=== PATIENT | female | born 1955 | race Caucasian/White ===

== ENCOUNTER → 2016-09-06 07:54 | Outpatient (CLI) | payer MEDICARE ==
[2013-04-08 16:44] VITALS: BMI 33.5
[~2016-09-06 07:54] MED LIST: LISINOPRIL10 MG PO; PERCOCET 5/3251 TA1 PO; PRAVACHOL20 MG PO
== END | disposition home or self-care (01) ==
LOC: D.US 07:54
DX: R10.9 Unspecified abdominal pain (principal)

== ENCOUNTER → 2016-11-23 10:32 | Outpatient (CLI) | payer MEDICARE ==
[2013-04-08 16:44] VITALS: BMI 33.5
== END | disposition home or self-care (01) ==
LOC: D.LAB 10:32
PROVIDERS: Internal Medicine Gastroenterology
DX: R19.7 Diarrhea, unspecified (principal)

== ENCOUNTER → 2016-11-29 13:59 | Outpatient (CLI) | payer MEDICARE ==
[2013-04-08 16:44] VITALS: BMI 33.5
[~2016-11-29 13:59] MED LIST changes: +FOLIC ACID1 MG PO; +GLUCOPHAGE500 MG PO; +KEPPRA1000 MG PO; +LEXAPRO20 MG PO; +NABUMETONE; +NEURONTIN800 MG PO; +ROBAXIN-750750 MG PO; +[UNRECOGNIZED DRUG - OTHER]
[2016-12-03 06:35] VITALS: BMI 39.9
== END | disposition home or self-care (01) ==
LOC: D.LAB 08:00
DX: R19.7 Diarrhea, unspecified (principal)

== ENCOUNTER 2016-12-03 05:33 | Day surgery (SDC) | payer MEDICARE ==
[~2016-12-03] VITALS: Ht 162.6 cm; Wt 105.5 kg
--- NOTE | ~2016-12-03 | OP ---
PATIENT NAME: AARON CARRASQUILLO MEDICAL RECORD: [id number] :55 LOCATION:[facility] ADMISSION DATE: SURGEON: NILDA DUMONT DO DATE OF OPERATION: 12/03/2016 PROCEDURE: EGD with biopsies. INDICATIONS FOR PROCEDURE: Diarrhea and epigastric abdominal pain as well as gastroesophageal reflux disease. SCOPE: Olympus video gastroscope. MEDICATIONS: Propofol 150 mg IV per anesthesia. ESTIMATED BLOOD LOSS: Minimal. COMPLICATIONS: None. FINDINGS: Informed consent was given. The patient was made comfortable with the above medication. After reaching an adequate level of sedation by slow IV push, the patient was placed on her left side. The endoscope was then advanced under direct visualization through the mouth to the second portion of the duodenum. The upper, middle, lower thirds of the esophagus appeared normal. The GE junction had a normal appearing Z line with some possibly inflamed tissue just distal to this. Cold forcep biopsies were taken of this tissue. There were no obvious lesions or positive appearance of Wu's esophagus. The endoscope was advanced beyond the GE junction into the stomach and retroflexed to view the cardia, where a small sliding hiatal hernia was present. The fundus and body of the stomach appeared normal. In the antrum and prepyloric region, there was some very mild erythema and granularity consistent with possible gastritis. Random biopsies were taken with cold forceps to submit for histology and to rule out H. pylori. The endoscope was advanced beyond the pylorus into the duodenum where the bulb and second portion of the duodenum appeared normal. Based on the patient's symptoms, biopsies were taken from both the bulb and second portion of the duodenum to submit for histology. The endoscope is withdrawn from the patient. The patient tolerated the procedure well and there were no complications. IMPRESSION: 1. Small sliding hiatal hernia. 2. Erythema and granularity of the stomach consistent with possible gastritis. Biopsies are pending. PLAN AND RECOMMENDATIONS: 1. Discharge home when recovery parameters are met. 2. Continue current diet. 3. Continue current medications. 4. Okay to use as needed antacids medication for any reflux symptoms. 5. We will provide a script for Viberzi 100 mg twice daily for what appears to be irritable bowel syndrome, which is diarrhea predominant, based on the patient's continued diarrhea in light of normal endoscopies and stool studies. TRANSINT:[id number] Voice Confirmation ID: [id number] DOCUMENT ID: [id number] OPERATIVE REPORT [id number] AARON CARRASQUILLO NATHAN A DO CC: [id number] DICTATION DATE: 12/03/16758 NEGATIVE TURNER: 12/03/16 0838 [facility] [address] [id number]
[~2016-12-03 05:33] MED LIST changes: -FOLIC ACID1 MG PO; -GLUCOPHAGE500 MG PO; -KEPPRA1000 MG PO; -LEXAPRO20 MG PO; -NABUMETONE; -NEURONTIN800 MG PO; -ROBAXIN-750750 MG PO; -[UNRECOGNIZED DRUG - OTHER]
[2016-12-03] MEDS ORDERED: KEPPRA1000 MG PO (06:11)
[2016-12-03] MEDS ORDERED: GLUCOPHAGE500 MG PO (06:14)
[2016-12-03] MEDS ORDERED: NEURONTIN800 MG PO (06:14)
[2016-12-03] MEDS ORDERED: FOLIC ACID1 MG PO (06:15)
[2016-12-03] MEDS ORDERED: LEXAPRO20 MG PO (06:15)
[2016-12-03] MEDS ORDERED: [UNRECOGNIZED DRUG - OTHER] (06:16)
[2016-12-03] MEDS ORDERED: ROBAXIN-750750 MG PO (06:17)
[2016-12-03] MEDS ORDERED: NABUMETONE (06:18)
[2016-12-03 06:35] VITALS: BP 155/76; Ht 162.6 cm; Wt 105.5 kg
[2016-12-03 06:42] LABS: HEMATOCRIT 39.9 % (36.0-48.0); HEMOGLOBIN 13.1 g/dL (12-16); MCH 30.3 pg (26.0-34.0); MCHC 32.8 g/dL (31.0-37.0); MCV 92.4 fL (80.0-100.0); MEAN PLATELET VOLUME 10.7 fL (7.4-10.4); RBC 4.32 10x6/uL (4.00-5.40); RDW 13.9 % (11.5-14.5); WBC 5.8 10x3/uL (4.8-10.8)
[2016-12-03 07:01] LABS: ANION GAP 12.6 mmol/L (8-16); CALCIUM 8.9 mg/dL (8.5-10.1); CARBON DIOXIDE 27.2 mmol/L (21.0-32.0); CREATININE - SERUM 0.9 mg/dL (0.6-1.3); POTASSIUM - SERUM 3.8 mmol/L (3.5-5.1)
--- NOTE | 2016-12-03 08:22 | NUR ---
0800-RECD TO ROOM FROM GI LAB. DROWSY. AROUSES TO NAME CALL. IV PATENT. DENIES PAIN. VOISE IN TO REPORT FINDINGS.
--- NOTE | 2016-12-03 09:12 | NUR ---
0850-NO NAUSEA AFTER FULL LIQUIDS. IV D/C. 0855-D/C INSTRUCTIONS REVIEWED. 899-D/C HOME VIA WHEELCHAIR WITH SISTER.
== END 2016-12-03 09:00 | disposition home or self-care (01) ==
LOC: D.OPS 05:33
PROVIDERS: Anesthesiology
DX: R19.7 Diarrhea, unspecified (principal); R10.13 Epigastric pain; K44.9 Diaphragmatic hernia without obstruction or gangrene; I10 Essential (primary) hypertension; E11.9 Type 2 diabetes mellitus without complications; G47.30 Sleep apnea, unspecified; Z01.812 Encounter for preprocedural laboratory examination

== ENCOUNTER → 2017-01-30 14:35 | Outpatient (CLI) | payer MEDICARE ==
[2016-12-03 06:35] VITALS: BMI 39.9
[~2017-01-30 14:35] MED LIST changes: +FOLIC ACID1 MG PO; +GLUCOPHAGE500 MG PO; +KEPPRA1000 MG PO; +LEXAPRO20 MG PO; +NABUMETONE; +NEURONTIN800 MG PO; +ROBAXIN-750750 MG PO; +[UNRECOGNIZED DRUG - OTHER]
== END | disposition home or self-care (01) ==
LOC: D.MAMMO 14:15
DX: Z12.31 Encounter for screening mammogram for malignant neoplasm of breast (principal)

== ENCOUNTER → 2017-03-08 09:30 | Outpatient (CLI) | payer MEDICARE ==
[2016-12-03 06:35] VITALS: BMI 39.9
[2017-03-08 10:26] LABS: ALBUMIN 3.7 g/dL (3.4-5.0); BILIRUBIN - DIRECT 0.1 mg/dL (0.00-0.30); BILIRUBIN - INDIRECT 0.25 mg/dL (0.00-1.00); BILIRUBIN - TOTAL 0.35 mg/dL (0.2-1.3)
== END | disposition home or self-care (01) ==
LOC: D.US 09:30
PROVIDERS: Internal Medicine Gastroenterology
DX: K76.0 Fatty (change of) liver, not elsewhere classified (principal)

== ENCOUNTER → 2017-03-21 14:53 | Outpatient (CLI) | payer MEDICARE ==
[2016-12-03 06:35] VITALS: BMI 39.9
== END | disposition home or self-care (01) ==
LOC: D.CT 14:53
PROVIDERS: Family Medicine
DX: H53.2 Diplopia (principal)

== ENCOUNTER → 2017-09-06 08:46 | Outpatient (CLI) | payer MEDICARE ==
[2016-12-03 06:35] VITALS: BMI 39.9
[~2017-09-06 08:46] MED LIST changes: +CRESTOR5 MG PO; +GLIMEPIRIDE4 MG PO; +LAMICTAL100 MG PO
[2017-09-06 10:19] LABS: ALBUMIN 3.3 g/dL (3.4-5.0); BILIRUBIN - DIRECT 0.09 mg/dL (0.00-0.30); BILIRUBIN - INDIRECT 0.28 mg/dL (0.00-1.00); BILIRUBIN - TOTAL 0.37 mg/dL (0.2-1.3); PROTEIN - SERUM 6.7 g/dL (6.4-8.2)
== END | disposition home or self-care (01) ==
LOC: D.US 08:46
PROVIDERS: Internal Medicine Gastroenterology
DX: K76.0 Fatty (change of) liver, not elsewhere classified (principal); R19.5 Other fecal abnormalities

== ENCOUNTER 2017-11-26 10:59 | Outpatient (CLI) | payer MEDICARE ==
[~2017-11-26] VITALS: Ht 162.6 cm; Wt 109.1 kg
--- NOTE | ~2017-11-26 | OP ---
PATIENT NAME: AARON CARRASQUILLO MEDICAL RECORD: [id number] :55 LOCATION:D.CAT ADMISSION DATE: SURGEON: SILVANA OWEN MD DATE OF OPERATION: 11/26/2017 PROCEDURE: Left heart catheterization, selective coronary angiography, right radial and right femoral artery approach. CATHETERS: Radial sheath via radial approach, 5-Slovenian sheath in the femoral side. The procedure was well tolerated. The patient was returned to lee. Sheath removed and ExoSeal device was placed. FINDINGS: Left ventriculography in 30-degree GRUBER view shows mild global hypokinesis. Overall, LV function mildly reduced, estimated EF 40% to 45%. CORONARY ANATOMY: LEFT MAIN: Left main is free of disease. LAD: Free of disease in the diagonal system. CIRCUMFLEX: Free of disease in the marginal system. RIGHT CORONARY ARTERY: Dominant artery, gives rise to PDA, free of disease. IMPRESSION: Mildly reduced LV systolic function, normal coronary anatomy. TRANSINT:[id number] Voice Confirmation ID: [id number] DOCUMENT ID: [id number] SILVANA OWEN MD at 1313 CC: [id number] DICTATION DATE: 11/26/17 1345 PUSHER OPERATOR: 11/26/17 1354 DEP CLI 11/26/17 [facility] [address] [place] [address]
--- NOTE | ~2017-11-26 | HEMODYNAMI ---
PATIENT:AARON CARRASQUILLO MEDICAL RECORD: [id number] : 55 LOCATION:[facility] ADMISSION DATE: 11/26/17 Generatedon:11/26/201713:41 Patient name: AARON CARRASQUILLO Patient #: [id number] SSN : : 1955 Date of study: 11/26/2017 Page: Of Hemodynamic Procedure Report Patient Data Patient Demographics Procedure consent was obtained First Name: AARON Gender: Female Last Name: NEIDA : 1955 Middle Initial: MILANA Age: 62 year(s) Patient #: [id number] Race: Unknown Additional ID: [id number] Contact details [address]: [address] [place] [address] State: [place] City: [place] Zip code: [address] Past Medical History Allergies Allergen Reaction Date Comments Reported Other allergy 11/26/2017 BENICAR, DARVOCET,LISINOPRIL, SULFA, METFORMIN Admission Admission Data Admission Date: 11/26/2017 Admission Time: 10:59 Lab Results Lab Result Date: 11/26/2017 Lab Result Time: 0:00 Biochemistry Name Units Result Min Max BUN mg/dl 12 --(-*--)-- 7 18 Creatinine mg/dl 1.2 --(---*)-- 0.6 1.3 CBC Name Units Result Min Max Hemoglobin g/dl 14 --(*---)-- 13.5 17.5 Procedure Procedure Types Cath Procedure Diagnostic Procedure LHC LH w/Coronaries Sedation Charges Moderate Sedation up to 30 minutes Procedure Description Procedure Date Procedure Date: 11/26/2017 Procedure Start Time: 13:11 Procedure End Time: 13:39 Procedure Staff Name Function Rodríguez Tatum MD Performing Physician Joselyn Womack RT Monitor Gabe Merchant RN Nurse Glendy Roberts RT Scrub Procedure Data Cath Procedure Fluoroscopy Diagnostic fluoroscopy Total fluoroscopy Time: 8.4 time: 8.4 min min Diagnostic fluoroscopy Total fluoroscopy dose: 923 dose: 923 mGy mGy Contrast Material Contrast Material Type Amount (ml) Isovue 300 70 Entry Location Entry Primary Successful Side Size Upsize Upsize Entry Closure Phipps ccessful Closure Location (Fr) 1 (Fr) 2 (Fr) Remarks Device Remarks Radial Right 6 Fr Mechanical artery Short Compression Femoral Right 5 Fr Exoseal artery Estimated blood loss: 5 ml Diagnostic catheters Device Type Used For End Catheter Placement DIAGNOSTIC [place] 110cm 5 Procedure Fr catheter ([id number]) DIAGNOSTIC AR MOD 5Fr Procedure Catheter ([id number]) DIAGNOSTIC JL 3.5 5Fr Procedure catheter ([id number]) DIAGNOSTIC Duke 110cm Procedure 5Fr catheter (705694) DIAGNOSTIC JL 3.5 5Fr Procedure catheter ([id number]) DIAGNOSTIC JL 4.0 5Fr Procedure catheter ([id number]) Procedure Complications No complications Procedure Medications Medication Administration Route Dosage 0.9% NaCl I.V. 100 ml/hr Oxygen 8 l/min Heparin Flush Bag added to field 2 bags (1000units/500ml NS) Lidocaine 2% added to field 20 Radial Cocktail added to field 1 syringe (Verapomil 2mg/Nitro 400mcg/Heparin 1500units) Versed I.V. 1 mg Fentanyl I.V. 50 mcg Versed I.V. 1 mg Fentanyl I.V. 50 mcg Hemodynamics Rest HGB: 14 (g/dl) Heart Rate: 61 (bpm) Pressure Samples Time Site Value (mmHg) Purpose Heart Use Rate(bpm) 13:14 LV 139/2,5 Snapshot 67 13:14 AO 119/70(91) Pullback 70 13:14 LV 137/4,6 Pullback 70 Gradients Valve Time Site 1 Site 2 Mean SEP/DFP Peak To Heart Use (mmHg) (sec/min) Peak Rate (mmHg) (bpm) Aortic 13:14 LV AO 12 17 18 70 137/4,6 119/70(91) Calculations Valve P-P Mean Valve Index Valve Source Name Gradient Area Flow (cm2) Aortic 18 12 18 12 Snapshots Pre Cath Intra NCS Post Cath Vital Signs Time Heart Resp SPO2 etCO2 NIBP (mmHg) Rhythm Pain Sedation Rate (ipm) (%) (mmHg) Status Level (bpm) 13:03:18 61 14 99 0 158/94(131) NSR 0 (11) 10(A) , No pain 13:08:04 58 14 97 0 151/77(114) NSR 0 (11) 10(A) , No pain 13:12:51 66 14 98 0 159/67(121) NSR 0 (11) 10(A) , No pain 13:17:36 74 12 95 0 137/59(99) NSR 0 (11) 9(A) , No pain 13:22:16 71 14 94 0 142/85(129) NSR 0 (11) 9(A) , No pain 13:26:59 72 12 95 0 146/86(136) NSR 0 (11) 9(A) , No pain 13:31:42 72 12 97 0 162/98(134) NSR 0 (11) 9(A) , No pain 13:36:22 70 12 98 0 156/101(150) NSR 0 (11) 9(A) , No pain Medications Time Medication Route Dose Verified Delivered Reason Notes Ef fectiveness by by 13:02:52 0.9% NaCl I.V. 100 Gabe Gabe Per ml/hr Lorigan Lorigan physician RN RN 13:03:14 Oxygen simple 8 l/min Gbae Gabe Per mask Lorigan Lorigan physician RN RN 13:03:28 Heparin Flush added 2 bags Gabe Gabe used for Bag to Lorigan Lorigan procedure (1000units/500ml field RN RN NS) 13:03:40 Lidocaine 2% added 20ml Gabe Gabe for local to vial Lorigan Lorigan anesthetic field RN RN 13:03:52 Radial Cocktail added 1 Gabe Gabe used for (Verapomil to syringe Lorigan Lorigan procedure 2mg/Nitro field RN RN 400mcg/Heparin 1500units) 13:07:26 Versed I.V. 1 mg Gabe Gabe for Lorigan Lorigan sedation RN RN 13:07:33 Fentanyl I.V. 50 mcg Gabe Gabe for Lorigan Lorigan sedation RN RN 13:13:20 Versed I.V. 1 mg Gabe Gabe for Lorigan Lorigan sedation RN RN 13:13:26 Fentanyl I.V. 50 mcg Gabe Gabe for Lorigan Lorigan sedation RN technician telecommunication systems Log Time Note 12:47:45 Joselyn Womack RT(R) sent for patient. Start room use. 12:47:46 Time tracking: Regular hours (M-F 7:00 - 5:00) 12:47:51 Plan of Care:Hemodynamics will remain stable., Cardiac rhythm will remain stable., Comfort level will be maintained., Respiratory function will remain adequate., Patient/ family verbilizes understanding of procedure., Procedure tolerated without complication., Recovers from procedure without complications.. 12:47:53 Signed procedure consent form obtained from patient. 12:48:04 H&P Date Dictated: 11/05/2017 Within 30 days and on chart., H&P Addendum completed by physician on day of procedure. (MUST COMPLETE FOR ALL OUTPATIENTS). 12:49:17 Patient allergic to Other allergyBENICAR, DARVOCET,LISINOPRIL, SULFA, METFORMIN 12:51:27 Patient received from Pre/Post Procedure Room to CCL 1 Alert and oriented. Tansferred to table in Supine position. 12:51:29 Warm blankets applied, and cj hugger turned on for patient comfort. 12:51:29 Correct patient and procedure confirmed by team. 12:51:30 ECG and BP/O2 sat monitors applied to patient. 13:02:26 Vital chart was started 13:02:28 Baseline sample Acquired. 13:02:36 Rhythm: sinus rhythm 13:02:38 Full Disclosure recording started 13:02:38 Pre-procedure instructions explained to patient. 13:02:39 Pre-op teaching completed and patient verbalized understanding. 13:02:40 Family in patients room. 13:02:42 Patient NPO since Midnight. 13:02:45 Is the patient allergic to Iodine/contrast media? No. 13:02:52 0.9% NaCl 100 ml/hr I.V. was administered by Gabe Merchant RN; Per physician; 13:03:14 Oxygen 8 l/min simple mask was administered by Gabe Merchant RN; Per physician; 13:03:28 Heparin Flush Bag (1000units/500ml NS) 2 bags added to field was administered by Gabe Merchant RN; used for procedure; 13:03:40 Lidocaine 2% 20ml vial added to field was administered by Gabe Merchant RN; for local anesthetic; 13:03:52 Radial Cocktail (Verapomil 2mg/Nitro 400mcg/Heparin 1500units) 1 syringe added to field was administered by Gabe Merchant RN; used for procedure; 13:03:59 Is patient on blood thinner?No 13:04:00 Patient diabetic? Yes. 13:04:01 If diabetic: On Metformin? No 13:04:04 Patient not . Patient is over age 55. 13:04:07 Previous problem with sedation/anesthesia? No ? 13:04:08 Snore? Yes 13:04:09 Sleep apnea? Yes 13:04:11 Deviated septum? No 13:04:11 Opens mouth fully? Yes 13:04:13 Sticks out tongue? Yes 13:04:17 Airway obstruction? Yes COPD 13:04:21 Dentures? No ? 13:04:22 Modified Bahman's test Ulnar < 7 seconds 13:04:25 Patient pain scale 0/10 ?. 13:04:29 IV patent on arrival in left hand with 0.9% NaCl at [facility]. 13:04:34 Right Radial & Right Groin area was prepped with chlora-prep and draped in sterile fashion 13:04:35 Alarms reviewed by R. N. 13:04:35 Sharps counted by scrub and verified by R.N. 13:05:24 Use device set Radial Dx or PCI 13:05:25 ACIST Syringe (24032) opened to sterile field. 13:05:26 Bag Decanter (2002S) opened to sterile field. 13:05:27 ACIST Hand Control (02689) opened to sterile field. 13:05:28 ACIST Manifold (04625) opened to sterile field. 13:05:28 Tegaderm 4 x 4 (1626W) opened to sterile field. 13:05:30 Medline Cath Pack ([id number]) opened to sterile field. 13:05:30 DIAGNOSTIC WIRE .035 260cm J wire (892189) opened to sterile field. 13:05:31 MBrace Wrist Support ([id number]) opened to sterile field. 13:05:31 SHEATH 6Fr Prelude Radial ([id number]) opened to sterile field. 13:06:03 --------ALL STOP TIME OUT------ 13:06:04 Final Timeout: patient, procedure, and site verified with staff and physician. All members of the team are in agreement. 13:06:06 Right Radial & Right Groin site verified by team. 13:06:09 Physical assessment completed. ASA score P 2 - A patient with mild systemic disease as per Rodríguez Tatum MD. 13:06:12 Sedation plan: IV Moderate Sedation Medication:Versed, Fentanyl :: Versed 1 mg I.V. was administered by Gabe Merchant RN; for sedation; 13:07:33 Fentanyl 50 mcg I.V. was administered by Gabe Merchant RN; for sedation; :: Lab Result : Creatinine 1.2 mg/dl :: Lab Result : BUN 12 mg/dl :: Lab Result : Hemoglobin 14 g/dl 13:10:53 Zero performed for pressure channel P1 13:11:00 Procedure started. 13:11:15 Local anesthetic to right radial artery with Lidocaine 2% by Rodríguez Tatum MD.INITIAL ACCESS ONLY 13:12:22 A 6 Fr Short sheath was inserted into the Right Radial artery 13:12:50 A DIAGNOSTIC [place] 110cm 5 Fr catheter (515303) was advanced over the wire and used for Procedure. 13:13:20 Versed 1 mg I.V. was administered by Gabe Merchant RN; for sedation; 13::26 Fentanyl 50 mcg I.V. was administered by Gabe Merchant RN; for sedation; 13:13:45 LV gram done using GRUBER 13:13:48 Injector settings: Ml/sec: 7, Volume: 15, 13:14:20 LV hemodynamics recorded. 13:14:31 EF : 45 % 13:15:21 Catheter exchanged over wire. 13:16:17 A DIAGNOSTIC AR MOD 5Fr Catheter (128420R) was advanced over the wire and used for Procedure. 13:17:19 RCA angiography performed. 13:17:27 Catheter exchanged over wire. 13:18:32 A DIAGNOSTIC JL 3.5 5Fr catheter ([id number]) was advanced over the wire and used for Procedure. 13:21:55 UNABLE TO ENGAGE LCA 13:21:57 Catheter exchanged over wire. 13:22:45 GUIDE 5FR EBU 3.75 catheter ([id number]) opened to sterile field. 13:26:15 UNABLE TO ENGAGE LCA 13:26:16 Catheter exchanged over wire. 13:26:52 A DIAGNOSTIC Duke 110cm 5Fr catheter (944584) was advanced over the wire and used for Procedure. 13:28:04 UNABLE TO ENGAGE LCA 13:28:05 Catheter removed. 13:28:17 SHEATH 5FR Donie (NND659) opened to sterile field. 13:28:52 Local anesthetic to right femoral artery with Lidocaine 2% by Rodríguez Tatum MD.ADDITIONAL ACCESS 13:30:01 A 5 Fr sheath was inserted into the Right Femoral artery 13:30:47 A DIAGNOSTIC JL 3.5 5Fr catheter (614005B) was advanced over the wire and used for Procedure. 13:32:25 Catheter removed. 13:32:38 A DIAGNOSTIC JL 4.0 5Fr catheter (634928T) was advanced over the wire and used for Procedure. 13:34:34 LCA angiography performed. 13:34:50 Catheter removed. 13:34:58 EXOSEAL 5Fr (EX500) opened to sterile field. 13:35:00 TR BAND Standard ([id number]) opened to sterile field. 13:35:16 Sheath removed intact; hemostasis achieved with Exoseal to the Right Femoral artery. 13:36:11 Sheath removed intact; hemostasis achieved with Mechanical Compression to the Right Radial artery. 13:36:31 Fluoroscopy time 08.40 minutes. 13:36:35 Fluoroscopy dose: 923 mGy 13:36:35 Flurop Dose total: 923 13:36:40 Contrast amount:Isovue 300 70ml. 13:37:15 Procedure ended.(Physican Out) 13:37:26 Post-op/insertion site Right Femoral artery dressed using a 4 x 4 and Tegaderm. 13:37:29 Post right femoral artery:stable, soft, clean and dry 13:37:33 Post-procedure physical assessment completed. ASA score P 2 - A patient with mild systemic disease as per Rodríguez Tatum MD. 13:37:40 TR band inflated with 11cc of air. 13:37:43 Post procedure rhythm: unchanged. 13:37:57 Estimated blood loss: 5 ml 13:37:59 Post procedure instruction explained to patient.Patient verbalizes understanding. 13:37:59 Patient needs reinforcement of post procedure teaching. 13:38:59 Procedure type changed to Cath procedure, Diagnostic procedure, LHC, LHC w/Coronaries, Sedation Charges, Moderate Sedation up to 30 minutes 13:39:22 Procedure and supply charges have been captured, reviewed, submitted and are correct. 13:39:24 Procedure Complication : No complications 13:39:26 Vital chart was stopped 13:39:27 See physician's report for complete and final results. 13:39:28 Report given to Pre/Post Procedure Room. 13:39:31 Patient transfered to Pre/Post Procedure Room with Bed. 13:39:33 Procedure ended. 13:39:33 Full Disclosure recording stopped 13:39:38 End room use (Document Last) Device Usage Item Name Manufacture Quantity Catalog Number Hospital Part Current M inimal Lot# / Charge Number Stock Stock Serial# Code ACIST Syringe Acist 1 95582 697777 590099 791971 2 0 (83644) Medical Systems Par-Trans Marketing Bag Decanter Microtek 1 2001S 373615 82661 498776 5 (2001S) Medical Inc. ACIST Hand Acist 1 31480 650309 680140 022397 5 Control (55663) Medical Systems Inc ACIST Manifold Acist 1 89348 345944 008502 135245 5 (36641) Medical Systems Inc Tegaderm 4 x 4 3M 1 1626W 137649 943210 912714 5 (1626W) Medline Cath Cardinal 1 [id number] 470827 58599 844251 5 Pack Health ([id number]) DIAGNOSTIC WIRE [place] 1 498899 023039 262826 885827 3 0 .035 260cm J wire (954625) MBrace Wrist Advanced 1 140-0250-00 103547 83416 647410 5 Support Vascular ([id number]) Dynamics SHEATH 6Fr Merit 1 [id number] 145239 562361 317892 5 Prelude Radial Medical ([id number]) DIAGNOSTIC Terumo 1 40-5013 201391 181424 212067 5 [place] 110cm 5 Fr catheter (691461) DIAGNOSTIC AR Cardinal 1 [id number] 440591 054995 715832 1 5 MOD 5Fr Health Catheter (293287R) DIAGNOSTIC JL Cardinal 1 [id number] 350433 553796 798466 5 3.5 5Fr Health catheter (812941R) GUIDE 5FR EBU Medtronic 1 [id number] 128983 969929 169845 1 3.75 catheter ([id number]) DIAGNOSTIC Terumo 1 40-5023 663476 034241 840664 5 Duke 110cm 5Fr catheter (122940) SHEATH 5FR Terumo 1 ZGI431 296448 765888 310553 4 0 Donie (UZW900) DIAGNOSTIC JL Cardinal 1 [id number] 456202 693617 888445 1 0 4.0 5Fr Health catheter (554774Y) EXOSEAL 5Fr Cardinal 1 EX500 484095 227856 609470 1 0 (EX500) Health TR BAND Terumo 1 [id number] 248266 153124 096929 4 0 Standard ([id number]) Signature Audit [place] Stage Time Signature Unsigned Intra-Procedure 11/26/2017 Joselyn Womack 1:41:47 PM RT(R) Signatures Monitor : Joselyn Womack Signature : RT Date : Time : [id number] [place] [address]
[~2017-11-26 10:59] MED LIST changes: -CRESTOR5 MG PO; -GLIMEPIRIDE4 MG PO; -LAMICTAL100 MG PO
[2017-11-26] MEDS ORDERED: LAMICTAL100 MG PO (11:46)
[2017-11-26] MEDS ORDERED: CRESTOR5 MG PO (11:47)
[2017-11-26] MEDS ORDERED: LEXAPRO20 MG PO (11:48)
[2017-11-26] MEDS ORDERED: GLIMEPIRIDE4 MG PO (11:49)
[2017-11-26 11:52] LABS: BASOPHILS 0.1 % (0-2); HEMATOCRIT 42.1 % (36.0-48.0); IMMATURE GRANULOCYTES 0.2 % (0-5); LYMPHOCYTES 21.2 % (15-50); MCH 30.6 pg (26.0-34.0); MCHC 33.3 g/dL (31.0-37.0); MCV 91.9 fL (80.0-100.0); MEAN PLATELET VOLUME 10.4 fL (7.4-10.4); MONOCYTES 7.1 % (2-11); NEUTROPHILS 70.4 % (40-80); PLATELET COUNT 206 10x3/uL (130-400); RBC 4.58 10x6/uL (4.00-5.40); RDW 13.9 % (11.5-14.5); WBC 8.1 10x3/uL (4.8-10.8)
[2017-11-26 11:56] VITALS: BP 137/73; Ht 162.6 cm; Wt 109.1 kg
[2017-11-26 12:01] LABS: ANION GAP 10.1 mmol/L (8-16); CALCIUM 8.6 mg/dL (8.5-10.1); CARBON DIOXIDE 27.2 mmol/L (21.0-32.0); CREATININE - SERUM 1.2 mg/dL (0.6-1.3); POTASSIUM - SERUM 4.3 mmol/L (3.5-5.1)
== END 2017-11-26 16:00 ==
LOC: D.CATH 10:59
PROVIDERS: Internal Medicine Interventional Cardiology
DX: R94.39 Abnormal result of other cardiovascular function study (principal); R06.00 Dyspnea, unspecified; Z01.812 Encounter for preprocedural laboratory examination

== ENCOUNTER → 2017-12-18 12:06 | Outpatient (CLI) | payer MEDICARE ==
[2017-11-26 11:56] VITALS: BMI 41.3
[~2017-12-18 12:06] MED LIST changes: +CRESTOR5 MG PO; +EDARBYCLOR 40-1 EACH PO; +GLIMEPIRIDE4 MG PO; +KLOR-CON 1010 MEQ PO; +LAMICTAL100 MG PO; +NOVOLOG100 UNIT/1 SQ
[2017-12-18 12:57] LABS: BASOPHILS 0.4 % (0-2); EOSINOPHILS 2.4 % (0-7); HEMATOCRIT 40.1 % (36.0-48.0); HEMOGLOBIN 13.4 g/dL (12-16); IMMATURE GRANULOCYTES 0.1 % (0-5); LYMPHOCYTES 24.5 % (15-50); MCH 30.4 pg (26.0-34.0); MCHC 33.4 g/dL (31.0-37.0); MCV 90.9 fL (80.0-100.0); MEAN PLATELET VOLUME 10.5 fL (7.4-10.4); MONOCYTES 8.4 % (2-11); NEUTROPHILS 64.2 % (40-80); PLATELET COUNT 203 10x3/uL (130-400); RBC 4.41 10x6/uL (4.00-5.40); RDW 13.8 % (11.5-14.5)
[2017-12-18 13:14] LABS: ALBUMIN 3.2 g/dL (3.4-5.0); ANION GAP 13.2 mmol/L (8-16); BILIRUBIN - TOTAL 0.27 mg/dL (0.2-1.3); CALCIUM 8.7 mg/dL (8.5-10.1); CARBON DIOXIDE 27.4 mmol/L (21.0-32.0); POTASSIUM - SERUM 3.6 mmol/L (3.5-5.1); PROTEIN - SERUM 6.9 g/dL (6.4-8.2)
[2017-12-20 16:12] LABS: LAMOTRIGINE (LAMICTAL) None Detected ug/mL (2.0-20.0)
[2017-12-21 10:12] LABS: LEVETIRACETAM 20.5 ug/mL (10.0-40.0)
== END | disposition home or self-care (01) ==
LOC: D.LAB 12:06
PROVIDERS: Psychiatry & Neurology Neurology
DX: G40.209 Localization-related (focal) (partial) symptomatic epilepsy and epileptic syndromes with complex partial seizures, not intractable, without status epilepticus (principal)

== ENCOUNTER 2018-01-15 07:33 | Day surgery (SDC) | payer MEDICARE ==
[~2018-01-15] VITALS: Ht 162.6 cm; Wt 104.5 kg
--- NOTE | ~2018-01-15 | OP ---
PATIENT NAME: AARON CARRASQUILLO MEDICAL RECORD: [id number] :55 LOCATION:D.OPS ADMISSION DATE: SURGEON: NILDA DUMONT DO DATE OF OPERATION: 01/15/2018 PROCEDURE: Colonoscopy with polypectomy. INDICATIONS FOR PROCEDURE: Family history positive for colon cancer including patient's mother and personal history of colon polyps. Last colonoscopy was approximately 1 year ago. SCOPE: Olympus video pediatric colonoscope. MEDICATIONS: Propofol 270 mg IV per anesthesia. WITHDRAWAL TIME: 12 minutes. ESTIMATED BLOOD LOSS: Minimal. COMPLICATIONS: None. FINDINGS: Informed consent was given. The patient was made comfortable with the above medication. After reaching an adequate level of sedation by slow IV push, the patient was placed on her left side. A digital rectal examination was performed and was normal. The endoscope was then advanced under direct visualization through the rectum to the cecum and terminal ileum. The endoscope was slowly withdrawn and mucosa was carefully examined. The prep quality was good. There was a single polyp visualized on today's examination. It was benign appearing and sessile and located in the descending colon. It measured approximately 4 mm in diameter. It was removed using the hot forceps. There was evidence of mild diverticulosis in the sigmoid colon without diverticulitis. Retroflexion was performed in the rectum with visualization of grade I internal hemorrhoids without bleeding. The endoscope was withdrawn from the patient. The patient tolerated the procedure well and there were no complications. IMPRESSION: 1. Single benign appearing sessile polyp located in the descending colon, removed using hot forceps. 2. Mild diverticulosis of the sigmoid colon. 3. Grade I internal hemorrhoids without bleeding. PLAN AND RECOMMENDATIONS: 1. Discharge home when recovery parameters are met. 2. Follow up biopsy specimen results. 3. High fiber diet. 4. Continue current medications. 5. Recall colonoscopy in 5 years. TRANSINT:[id number] Voice Confirmation ID: [id number] DOCUMENT ID: [id number] OPERATIVE REPORT [id number] AARON CARRASQUILLO NILDA DUMONT DO at 1403 CC: [id number] DICTATION DATE: 01/15/18 0947 FREELANCE WEB DESIGNER: 01/15/18 1105 [facility] 01/15/18 [place] [address]
[~2018-01-15 07:33] MED LIST changes: -EDARBYCLOR 40-1 EACH PO; -KLOR-CON 1010 MEQ PO; -NOVOLOG100 UNIT/1 SQ
[2018-01-15 08:23] LABS: HEMATOCRIT 40.7 % (36.0-48.0); HEMOGLOBIN 13.9 g/dL (12-16); MCH 30.8 pg (26.0-34.0); MCHC 34.2 g/dL (31.0-37.0); MEAN PLATELET VOLUME 10.8 fL (7.4-10.4); RBC 4.52 10x6/uL (4.00-5.40); RDW 13.4 % (11.5-14.5)
[2018-01-15 08:28] LABS: ANION GAP 11.7 mmol/L (8-16); CALCIUM 9.1 mg/dL (8.5-10.1); CARBON DIOXIDE 30.3 mmol/L (21.0-32.0); CREATININE - SERUM 1.5 mg/dL (0.6-1.3)
[2018-01-15] MEDS ORDERED: NOVOLOG100 UNIT/1 SQ (09:03)
[2018-01-15] MEDS ORDERED: KLOR-CON 1010 MEQ PO (09:04)
[2018-01-15] MEDS ORDERED: EDARBYCLOR 40-1 EACH PO (09:05)
[2018-01-15 09:06] VITALS: BP 138/62; Ht 162.6 cm; Wt 104.5 kg
== END 2018-01-15 10:50 | disposition home or self-care (01) ==
LOC: D.OPS 07:33
PROVIDERS: Anesthesiology
DX: K63.5 Polyp of colon (principal); Z80.0 Family history of malignant neoplasm of digestive organs; Z86.010 Personal history of colon polyps; Z01.812 Encounter for preprocedural laboratory examination

== ENCOUNTER → 2018-03-12 07:50 | Outpatient (CLI) | payer MEDICARE ==
[2018-01-15 09:06] VITALS: BMI 39.5
[~2018-03-12 07:50] MED LIST changes: +EDARBYCLOR 40-1 EACH PO; +KLOR-CON 1010 MEQ PO; +NOVOLOG100 UNIT/1 SQ
[2018-03-12 08:34] LABS: BILIRUBIN - DIRECT 0.1 mg/dL (0.00-0.30); BILIRUBIN - INDIRECT 0.19 mg/dL (0.00-1.00); BILIRUBIN - TOTAL 0.29 mg/dL (0.2-1.3); PROTEIN - SERUM 6.6 g/dL (6.4-8.2)
== END | disposition home or self-care (01) ==
LOC: D.US 07:50
PROVIDERS: Internal Medicine Gastroenterology
DX: K76.0 Fatty (change of) liver, not elsewhere classified (principal)

== ENCOUNTER → 2018-08-11 09:22 | Outpatient (CLI) | payer MEDICARE ==
[2018-01-15 09:06] VITALS: BMI 39.5
[2018-08-11 10:36] LABS: AMYLASE - SERUM 67 U/L (25-115); LIPASE 281 U/L (73-393)
== END | disposition home or self-care (01) ==
LOC: D.US 09:22
PROVIDERS: ATTEND Internal Medicine Gastroenterology
DX: R10.84 Generalized abdominal pain (principal); K21.9 Gastro-esophageal reflux disease without esophagitis; K76.0 Fatty (change of) liver, not elsewhere classified

== ENCOUNTER → 2019-10-20 11:25 | Outpatient (CLI) | payer MEDICARE ==
[2018-01-15 09:06] VITALS: BMI 39.5
--- NOTE | 2019-10-22 14:25 | EC ---
PATIENT:AARON CARRASQUILLO DATE OF SERVICE: 10/20/19 SEX: F MEDICAL RECORD: [id number] DATE OF : 55 [facility]GE [facility]: 64 ADMISSION DATE: 10/20/19 REFERRING PHYSICIAN: INTERPRETING PHYSICIAN: SILVANA OWEN MD ECHOCARDIOGRAM REPORT ECHO CHARGES 4 ECHO COMPLETE Date: 10/20/19 CLINICAL DIAGNOSIS: HX OF CARDIOMYOPATHY/ ASSESS EF ECHOCARDIOGRAPHIC MEASUREMENTS (adult normal given) AC root (d.<3.7cm) 4.0 cm LV Septum d (<1.2 cm> 1.8 cm Valve Excursion 1.7 cm LV Septum (systole) 1.9 cm Left Atria (s.<4.0cm> 4.0 cm LVPW d(<1.2cm) 1.7 cm RV (d.<2.3cm) 3.2 cm LVPW (sytole) 2.0 cm LV diastole(<5.6CM) 5.7 cm MV E-F(>70mm/sec) cm LV systole 3.8 cm LVOT Diameter 1.8 cm MV exc.(>10mm) cm Est.ejection fraction (50-75%) % DOPPLER: LVIT cm/sec A 96.0 cm/sec E 70.0 cm/sec LA cm/sec RVSP 15 mmHg LVOT 93 cm/sec AOP1/2T m/s Asc. Ao 105 cm/sec RVOT 88 cm/sec RA cm/sec PA 123 cm/sec AV Gradient Peak 4.37 mmHg AV Mean 2.94 mmHg AV Area 2.1 cm MV Gradient Peak 3.79 mmHg MV Mean 1.46 mmHg MV Area cm COMMENTS: Photoengraving Printer: 2 JOSE MARIA FOOTE Pneumatic Riveter: 3 Dr. Siddiqui TAPE# PACS Pericardial Effusion N DATE OF SERVICE: Adequate 2D, color flow imaging, spectral Doppler, and M-Mode. LVH is present. LV internal dimension is normal. Wall motion is normal. EF is greater than or equal to 55%. Aortic valve is tricuspid. No evidence of stenosis by Doppler interrogation. Left atrium is normal at 4.0 cm. Mitral valve shows no prolapse. Trace MR. Right-sided chambers are grossly normal. Trace TR. ECHOCARDIOGRAM REPORT [id number] AARON CARRASQUILLO TRANSINT:[id number] Voice Confirmation ID: [id number] DOCUMENT ID: [id number] SILVANA OWEN MD at 1425 CC: [id number] DICTATION DATE: 10/21/19 1146 MICROSTRATEGY BI DEVELOPER: 10/21/191954 [facility] CLI 10/20/19 [id number] [place] [address]
== END | disposition home or self-care (01) ==
LOC: D.HCCECHO 11:00
PROVIDERS: ATTEND Internal Medicine Interventional Cardiology
DX: I42.9 Cardiomyopathy, unspecified (principal)

== ENCOUNTER → 2020-08-23 22:57 | Outpatient (CLI) | payer MEDICARE ==
[2018-01-15 09:06] VITALS: BMI 39.5
== END | disposition home or self-care (01) ==
LOC: D.LABREF 22:57
PROVIDERS: ATTEND Psychiatry & Neurology Neurology
DX: G40.309 Generalized idiopathic epilepsy and epileptic syndromes, not intractable, without status epilepticus (principal)